=== PATIENT | male | born 1945 | race Caucasian/White ===

== ENCOUNTER 2022-10-07 11:44 | Emergency (ER) | payer BC ==
[2022-10-07 13:23] VITALS: BP 138/78; PULSE 74
== END 2022-10-07 13:20 | disposition home or self-care (01) ==
LOC: JP.ED 11:44
DX: F41.9 Anxiety disorder, unspecified (principal); I10 Essential (primary) hypertension; Z79.899 Other long term (current) drug therapy
CPT/HCPCS: 82947; 99283

== ENCOUNTER 2022-10-08 06:21 | Day surgery (SDC) | payer BC ==
[2022-10-08] MEDS ORDERED: Lactated Ringers 1,000 ML IV SCH (07:00)
[2022-10-08] MEDS ORDERED: Propofol 200 MG/20 ML SDV ONE (07:16)
[2022-10-08] MEDS ORDERED: fentaNYL 100 MCG/2 ML SDV ONE (07:17)
[2022-10-08 08:48] VITALS: BP 96/62; PULSE 66
== END 2022-10-08 09:15 | disposition home or self-care (01) ==
LOC: JP.SDS 06:21
PROVIDERS: ATTEND Student in an Organized Health Care Education/Training Program
DX: Z12.11 Encounter for screening for malignant neoplasm of colon (principal); D12.3 Benign neoplasm of transverse colon; I10 Essential (primary) hypertension; K64.4 Residual hemorrhoidal skin tags
CPT/HCPCS: 45380; 88305; J2704; J3010; J7120